=== PATIENT | male | born 1970 | race African-American/Black ===

== ENCOUNTER 2016-12-19 08:36 | Inpatient (IN) | payer OTHER ==
[2016-12-19 10:49] VITALS: BMI 33.0
--- NOTE | 2016-12-19 14:48 | HP ---
Admission ROS [facility] Chief Complaint: I need to go to rehab to further my tx. I go to [facility] and need a higher level of care. Allergies/Adverse Reactions: Allergies Allergy/AdvReac Type Severity Reaction Status Date / Time bee venom protein (honey bee) Allergy Severe Difficulty Verified 12/19/16 12:18 Breathing penicillin G Allergy Severe Swelling Verified 12/19/16 12:18 butter Allergy Severe Hives Uncoded 12/19/16 12:16 History of Present Illness: Pt is a 46yr old male with a history of alcohol and cocaine dependence seeking rehab for treatment. Exam Limitations: No Limitations - Ebola screening Have you traveled outside of the country in the last 21 days: No Have you had contact with anyone from an Ebola affected area: No Have you been sick,other than usual withdrawal symptoms: No Do you have a fever: No - Review of Systems Constitutional: No Symptoms Reported EENT: reports: No Symptoms Reported Respiratory: reports: Cough, Productive cough Cardiac: reports: No Symptoms Reported GI: reports: No Symptoms Reported : reports: No Symptoms Reported Musculoskeletal: reports: No Symptoms Reported Integumentary: reports: No Symptoms Reported Neuro: reports: No Symptoms reported Endocrine: reports: No Symptoms Reported Hematology: reports: No Symptoms Reported Psychiatric: reports: Judgement Intact, Mood/Affect Appropiate, Orientated x3, Agitated, Anxious Other Systems: Reviewed and Negative Patient History - Patient Medical History Hx Anemia: No Hx Asthma: Yes Hx Chronic Obstructive Pulmonary Disease (COPD): No Hx Cancer: No Hx Cardiac Disorders: No Hx Congestive Heart Failure: No Hx Hypertension: Yes (norvasc 5mg) Hx Hypercholesterolemia: No Hx Pacemaker: No HX Cerebrovascular Accident: No Hx Seizures: No Hx Dementia: No Hx Diabetes: No Hx Gastrointestinal Disorders: No Hx Liver Disease: No Hx Genitourinary Disorders: No Hx Sexually Transmitted Disorders: No Hx Renal Disease (ESRD): No Hx Thyroid Disease: No Hx Human Immunodeficiency Virus (HIV): No (negative) Hx Hepatitis C: (negative) Hx Depression: Yes Hx Suicide Attempt: Yes (pill overdose at age 16; no desire to hurt self. ) Hx Bipolar Disorder: No Hx Schizophrenia: No - Patient Surgical History Past Surgical History: No Hx Neurologic Surgery: No Hx Cataract Extraction: No Hx Cardiac Surgery: No Hx Lung Surgery: No Hx Breast Surgery: No Hx Breast Biopsy: No Hx Abdominal Surgery: No Hx Appendectomy: No Hx Cholecystectomy: No Hx Genitourinary Surgery: No Hx Section: No Hx Orthopedic Surgery: No Anesthesia Reaction: No - PPD History Previous Implant?: Yes Documented Results: Negative w/proof Implanted On Prior [facility] Admission?: No Date: 02/09/16 Results: 0 mm PPD to be Administered?: No - Reproductive History Patient is a Female of Child Bearing Age (11 -55 yrs old): No - Smoking Cessation Smoking history: Current every day smoker Have you smoked in the past 12 months: Yes Aproximately how many cigarettes per day: 20 Hx Chewing Tobacco Use: No Initiated information on smoking cessation: Yes 'Breaking Loose' booklet given: 12/19/16 - Substance & Tx. History Hx Alcohol Use: Yes Hx Substance Use: Yes Substance Use Type: Alcohol, Cocaine Hx Substance Use Treatment: No (last detox many years ago.) - Substances Abused Cocaine Route: Inhalation Frequency: 1-2 times per week Amount used: $100 Age of first use: 10 Date of Last Use: 12/18/16 Alcohol-vodka Route: Oral Frequency: 1-2 times per week Amount used: 1 pt. Age of first use: 10 Date of Last Use: 12/18/16 Family Disease History - Family Disease History Family Disease History: Diabetes: Mother, Brother Admission Physical Exam BHS - Vital Signs Vital Signs: Vital Signs - 24 hr 12/19/16 10:47 Temperature 98.4 F Pulse Rate 71 Respiratory 20 Rate Blood Pressure 133/80 - Physical General Appearance: Yes: Appropriately Dressed, Moderate Distress, Tremorous, Irritable, Sweating, Anxious HEENTM: Yes: Hearing grossly Normal, Normal Voice Respiratory: Yes: Lungs Clear, Normal Breath Sounds, No Respiratory Distress Neck: Yes: No masses,lesions,Nodules Breast: Yes: Within Normal Limits Cardiology: Yes: Regular Rhythm, Regular Rate, S1, S2 Abdominal: Yes: Normal Bowel Sounds, Non Tender, Soft Genitourinary: Yes: Within Normal Limits Back: Yes: Normal Inspection Musculoskeletal: Yes: full range of Motion Extremities: Yes: Normal Capillary Refill, Normal Inspection, Tremors Neurological: Yes: Fully Oriented, Alert, Normal Response Integumentary: Yes: Normal Color Lymphatic: Yes: Within Normal Limits - Diagnostic (1) Alcohol abuse Current Visit: No Status: Chronic (2) Cocaine dependence Current Visit: No Status: Chronic Qualifiers: Substance use status: uncomplicated Qualified Code(s): F14.20 - Cocaine dependence, uncomplicated (3) Nicotine dependence Current Visit: Yes Status: Chronic Qualifiers: Nicotine product type: cigarettes Substance use status: uncomplicated Qualified Code(s): F17.210 - Nicotine dependence, cigarettes, uncomplicated (4) Asthma Current Visit: Yes Status: Chronic Qualifiers: Asthma severity: mild intermittent Asthma complication type: uncomplicated Qualified Code(s): J45.20 - Mild intermittent asthma, uncomplicated (5) Hypertension Current Visit: Yes Status: Chronic Qualifiers: Hypertension type: essential hypertension Qualified Code(s): I10 - Essential (primary) hypertension Cleared for Admission S - Detox or Rehab [facility] Level of Care: Medically Managed Claeared for Rehab Admission: Yes S Breath Alcohol Content Breath Alcohol Content: 0 Urine Drug Screen - Results Drug Screen Negative: No Urine Drug Screen Results: TONE-Cocaine
[2016-12-19] MEDS ORDERED: LOPERAMIDE HCL 2 MG CAPSULE PO PRN (14:54)
[2016-12-19] MEDS ORDERED: MAGNESIUM CITRATE 300 ML BOTTLE PO PRN (14:54)
[2016-12-19] MEDS ORDERED: hydrOXYzine PAMOATE 50 MG CAPSULE (FP) PO PRN (14:54)
[2016-12-19] MEDS ORDERED: MAGNESIUM HYDROX 2400MG/30ML ORAL SUSPENSION 30 ML CUP PO PRN (14:54)
[2016-12-19] MEDS ORDERED: ACETAMINOPHEN 325 MG TABLET (FP) PO PRN (14:54)
[2016-12-19] MEDS ORDERED: diphenhydrAMINE HCL 50 MG CAPSULE PO PRN (14:54)
[2016-12-19] MEDS ORDERED: P-EPHED 60MG/TRIPROLIDI 2.5MG TABLET PO PRN (14:54)
[2016-12-19] MEDS ORDERED: MAG HYDROX/AL HYDROX/SIMETH 30 ML UNIT-DOSE CUP PO PRN (14:54)
[2016-12-19] MEDS ORDERED: ALBUTEROL SO4 6.7 GM HFA INHALER IH PRN (14:56)
[2016-12-19 16:18] LABS: MCH 27.6 pg (25.7-33.7); MCHC 32.3 g/dl (32.0-35.9); MEAN CELL VOLUME 85.3 fl (80-96); RDW 13.6 % (11.9-15.9); WHITE BLOOD COUNT 9.6 K/mm3 (4.0-10.0)
[2016-12-19 16:19] LABS: ALBUMIN 4.2 g/dl (3.4-5.0); ANION GAP 7 (8-16); CALCIUM 9.1 mg/dL (8.5-10.1); CO2 29 mmol/L (21-32); GLUCOSE,RANDOM 99 mg/dL (74-106)
[2016-12-19 16:25] LABS: ALK PHOS 72 U/L (45-117); BILIRUBIN,TOTAL 0.8 mg/dL (0.2-1.0); CREATININE 1.1 mg/dL (0.7-1.3); SGOT/AST 16 U/L (15-37); SGPT/ALT 29 U/L (12-78); TOT PROT 6.9 g/dl (6.4-8.2)
[2016-12-19 17:19] LABS: PLATELET COMMENT2 SLT PLT CLUMPING; PLATELET COMMENT3 UNABLE TO ENUMERATE; PLATELET ESTIMATE ADEQUATE (NORMAL)
[2016-12-19 19:39] LABS: URINE APPEARANCE CLEAR; URINE BILIRUBIN NEGATIVE (NEGATIVE); URINE BLOOD NEGATIVE (NEGATIVE); URINE COLOR LTYELLOW; URINE GLUCOSE (UA) NEGATIVE (NEGATIVE); URINE KETONE NEGATIVE (NEGATIVE); URINE LEUK ESTERASE NEGATIVE (NEGATIVE); URINE NITRITE NEGATIVE (NEGATIVE); URINE PROTEIN NEGATIVE (NEGATIVE); URINE UROBILINOGEN NEGATIVE mg/dL (0.2-1.0)
[2016-12-19] MEDS: THIAMINE HCL 100 MG TABLET (FP) PO SCH (21:15)
[2016-12-19] MEDS: QUEtiapine FUMARATE 50 MG TABLET PO SCH (22:21)
[2016-12-20] MEDS: PRENATAL VITAMINS W/ FOLIC ACID TABLET (FP) PO SCH (09:54)
--- NOTE | 2016-12-20 10:12 | HP ---
Psychiatrist Admission - Data Date of interview: 12/20/16 Admission source: [facility] Identifying data: This is the first 5N inpatient rejhabilitation admission for this 46 year old single Black male father of 5, unemployed and on DSS, residing in [place]. Medical History: Asthma, HTN, smokes cigarettes 1 PPD. Psychiatric History: Patient reports was diagnosed as B[facility]olr [facility]. Reports no history of psychiatric hospitalizations and no history of suicdal/homicidal thoughts. Vital Signs: Vital Signs - 24 hr 12/19/16 12/19/16 12/20/16 10:47 18:35 00:30 Temperature 98.4 F 97.8 F Pulse Rate 71 67 Respiratory 20 18 18 Rate Blood Pressure 133/80 146/89 12/20/16 12/20/16 03:30 06:25 Temperature 97.9 F Pulse Rate 62 Respiratory 18 18 Rate Blood Pressure 148/85 Allergies/Adverse Reactions: Allergies Allergy/AdvReac Type Severity Reaction Status Date / Time bee venom protein (honey bee) Allergy Severe Difficulty Verified 12/19/16 12:18 Breathing penicillin G Allergy Severe Swelling Verified 12/19/16 12:18 butter Allergy Severe Hives Uncoded 12/19/16 12:16 Date of last physical exam: 12/19/16 Concur with the findings of this exam: Yes - Substance Abuse/Tx History Hx Alcohol Use: Yes Hx Substance Use: Yes Substance Use Type: Alcohol (1-2 times a week), Cocaine ($100 1-2 times a week) Hx Substance Use Treatment: Yes ([facility]) - Admission Criteria Previous failed treatment: Yes Poor recovery environment: Yes Comorbidities: Yes Lacks judgement: Yes Mental Status Exam - Mental Status Exam Alert and Oriented to: Time, Place, Person Cognitive Function: Good Patient Appearance: Well Groomed Mood: Hopeful Affect: Appropriate, Mood Congruent Patient Behavior: Appropriate, Cooperative Speech Pattern: Clear, Appropriate Voice Loudness: Normal Thought Process: Intact, Goal Oriented Thought Disorder: Not Present Hallucinations: Denies Suicidal Ideation: Denies Homicidal Ideation: Denies Insight/Judgement: Fair Sleep: Fair Appetite: Good Muscle strength/Tone: Normal Gait/Station: Normal Psychiatric Findings - Problem List ([place] 1, 2,3) (1) Asthma Current Visit: Yes Status: Chronic Qualifiers: Asthma severity: mild intermittent Asthma complication type: uncomplicated Qualified Code(s): J45.20 - Mild intermittent asthma, uncomplicated (2) Hypertension Current Visit: Yes Status: Chronic Qualifiers: Hypertension type: essential hypertension Qualified Code(s): I10 - Essential (primary) hypertension (3) Nicotine dependence Current Visit: Yes Status: Chronic Qualifiers: Nicotine product type: cigarettes Substance use status: uncomplicated Qualified Code(s): F17.210 - Nicotine dependence, cigarettes, uncomplicated (4) Alcohol abuse Current Visit: No Status: Chronic (5) Cocaine dependence Current Visit: No Status: Chronic Qualifiers: Substance use status: uncomplicated Qualified Code(s): F14.20 - Cocaine dependence, uncomplicated (6) Mood disorder Current Visit: Yes Status: Acute
--- NOTE | 2016-12-20 11:59 | EKG ---
Test Reason : Blood Pressure : / mmHG Vent. Rate : 064 BPM Atrial Rate : 064 BPM P-R Int : 140 ms QRS Dur : 098 ms QT Int : 374 ms P-R-T Axes : 054 073 -33 degrees QTc Int : 385 ms NORMAL SINUS RHYTHM ABNORMAL ECG NO PREVIOUS ECGS AVAILABLE Confirmed by DEMI STEVENS MD ([id number]) on 12/20/2016 11:58:46 AM Referred By: Confirmed By:DEMI STEVENS MD
[2016-12-20] MEDS: guaiFENesin/D-METHORPHAN HB 10 ML UNIT-DOSE CUPS PO PRN (16:58)
[2016-12-20] MEDS: THIAMINE HCL 100 MG TABLET (FP) PO SCH (21:17)
[2016-12-20] MEDS: QUEtiapine FUMARATE 50 MG TABLET PO SCH (21:17)
[2016-12-20] MEDS: MENTHOL/PHENOL 1 EACH UD MM PRN (21:18)
[2016-12-21] MEDS: amLODIPine BESYLATE 5 MG TABLET (FP) PO SCH (09:56)
[2016-12-21] MEDS: PRENATAL VITAMINS W/ FOLIC ACID TABLET (FP) PO SCH (09:56)
[2016-12-21] MEDS: QUEtiapine FUMARATE 50 MG TABLET PO SCH (21:45)
[2016-12-21] MEDS: guaiFENesin/D-METHORPHAN HB 10 ML UNIT-DOSE CUPS PO PRN (21:45)
[2016-12-21] MEDS: THIAMINE HCL 100 MG TABLET (FP) PO SCH (21:45)
[2016-12-22] MEDS: MENTHOL/PHENOL 1 EACH UD MM PRN ×3 (06:23→21:28)
[2016-12-22] MEDS: amLODIPine BESYLATE 5 MG TABLET (FP) PO SCH (09:52)
[2016-12-22] MEDS: PRENATAL VITAMINS W/ FOLIC ACID TABLET (FP) PO SCH (09:52)
[2016-12-22] MEDS: guaiFENesin/D-METHORPHAN HB 10 ML UNIT-DOSE CUPS PO PRN ×2 (09:54→21:27)
[2016-12-22] MEDS: IBUPROFEN 400 MG TABLET (FP) PO PRN (09:54)
[2016-12-22] MEDS: THIAMINE HCL 100 MG TABLET (FP) PO SCH (21:26)
[2016-12-22] MEDS: QUEtiapine FUMARATE 50 MG TABLET PO SCH (21:26)
[2016-12-23] MEDS: amLODIPine BESYLATE 5 MG TABLET (FP) PO SCH (09:59)
[2016-12-23] MEDS: PRENATAL VITAMINS W/ FOLIC ACID TABLET (FP) PO SCH (09:59)
[2016-12-23] MEDS: guaiFENesin/D-METHORPHAN HB 10 ML UNIT-DOSE CUPS PO PRN ×2 (10:00→21:25)
[2016-12-23] MEDS: QUEtiapine FUMARATE 50 MG TABLET PO SCH (21:23)
[2016-12-23] MEDS: IBUPROFEN 400 MG TABLET (FP) PO PRN (21:23)
[2016-12-23] MEDS: THIAMINE HCL 100 MG TABLET (FP) PO SCH (21:23)
[2016-12-23] MEDS: MENTHOL/PHENOL 1 EACH UD MM PRN (23:33)
[2016-12-24] MEDS: amLODIPine BESYLATE 5 MG TABLET (FP) PO SCH (09:59)
[2016-12-24] MEDS: PRENATAL VITAMINS W/ FOLIC ACID TABLET (FP) PO SCH (09:59)
--- NOTE | 2016-12-24 11:00 | PN ---
[facility] Progress Note Note: coughing,yellowish mucous,lung no wheezing acute bronchitis started on levaquin 500 mgs po daily for 7 days fluid,closed monitoring Vital Signs Temperature 98.1 F 12/24/16 06:56 Pulse Rate 73 12/24/16 06:56 Respiratory Rate 18 12/24/16 06:56 Blood Pressure 146/82 12/24/16 06:56 O2 Sat by Pulse Oximetry (%)
[2016-12-24] MEDS: LEVOFLOXACIN 500 MG TABLET (FP) PO SCH (11:10)
[2016-12-24] MEDS: QUEtiapine FUMARATE 50 MG TABLET PO SCH (21:24)
[2016-12-24] MEDS: THIAMINE HCL 100 MG TABLET (FP) PO SCH (21:24)
[2016-12-25] MEDS: LEVOFLOXACIN 500 MG TABLET (FP) PO SCH (08:40)
--- NOTE | 2016-12-25 08:59 | PN ---
[facility] Progress Note Note: called to evaluate patient with severe abdominal pain,no vomiting,no diarrhea sudden on set of pain heent nomal nock no jvd lung no wheezing abdomen soft distended pain in lower abdomen no regidity tenderness on palpation impression severe abdominal pain r/o renal colic r/o diverticulitis treatment er evaluation at [facility],spoke with Dr Juarez,to be transported by [facility] bp 138/82,p77,r18,t98.4
[2016-12-25] MEDS: PRENATAL VITAMINS W/ FOLIC ACID TABLET (FP) PO SCH (10:53)
[2016-12-25] MEDS: amLODIPine BESYLATE 5 MG TABLET (FP) PO SCH (10:53)
[2016-12-25] MEDS: THIAMINE HCL 100 MG TABLET (FP) PO SCH (21:30)
[2016-12-25] MEDS: QUEtiapine FUMARATE 50 MG TABLET PO SCH (21:30)
[2016-12-25] MEDS: metroNIDAZOLE 250 MG TABLET PO SCH (21:30)
[2016-12-26] MEDS: metroNIDAZOLE 250 MG TABLET PO SCH ×3 (08:49→21:30)
[2016-12-26] MEDS: LEVOFLOXACIN 500 MG TABLET (FP) PO SCH ×2 (08:49→09:58)
[2016-12-26] MEDS: amLODIPine BESYLATE 5 MG TABLET (FP) PO SCH (09:58)
[2016-12-26] MEDS: PRENATAL VITAMINS W/ FOLIC ACID TABLET (FP) PO SCH (09:58)
[2016-12-26] MEDS: THIAMINE HCL 100 MG TABLET (FP) PO SCH (21:30)
[2016-12-26] MEDS: QUEtiapine FUMARATE 50 MG TABLET PO SCH (21:30)
[2016-12-27] MEDS: metroNIDAZOLE 250 MG TABLET PO SCH ×3 (09:00→21:27)
[2016-12-27] MEDS: LEVOFLOXACIN 500 MG TABLET (FP) PO SCH (10:08)
[2016-12-27] MEDS: PRENATAL VITAMINS W/ FOLIC ACID TABLET (FP) PO SCH (10:08)
[2016-12-27] MEDS: amLODIPine BESYLATE 5 MG TABLET (FP) PO SCH (10:08)
[2016-12-27] MEDS: QUEtiapine FUMARATE 50 MG TABLET PO SCH (21:28)
[2016-12-27] MEDS: THIAMINE HCL 100 MG TABLET (FP) PO SCH (21:28)
[2016-12-28] MEDS: metroNIDAZOLE 250 MG TABLET PO SCH ×3 (08:14→21:24)
[2016-12-28] MEDS: amLODIPine BESYLATE 5 MG TABLET (FP) PO SCH (09:43)
[2016-12-28] MEDS: PRENATAL VITAMINS W/ FOLIC ACID TABLET (FP) PO SCH (09:43)
[2016-12-28] MEDS: LEVOFLOXACIN 500 MG TABLET (FP) PO SCH (09:43)
[2016-12-28] MEDS: QUEtiapine FUMARATE 50 MG TABLET PO SCH (21:24)
[2016-12-28] MEDS: THIAMINE HCL 100 MG TABLET (FP) PO SCH (21:24)
[2016-12-29] MEDS: LEVOFLOXACIN 500 MG TABLET (FP) PO SCH (09:05)
[2016-12-29] MEDS: PRENATAL VITAMINS W/ FOLIC ACID TABLET (FP) PO SCH (09:05)
[2016-12-29] MEDS: metroNIDAZOLE 250 MG TABLET PO SCH ×3 (09:05→21:27)
[2016-12-29] MEDS: amLODIPine BESYLATE 5 MG TABLET (FP) PO SCH (09:05)
[2016-12-29] MEDS: IBUPROFEN 400 MG TABLET (FP) PO PRN (14:15)
[2016-12-29] MEDS: QUEtiapine FUMARATE 50 MG TABLET PO SCH (21:27)
[2016-12-29] MEDS: THIAMINE HCL 100 MG TABLET (FP) PO SCH (21:27)
[2016-12-30] MEDS: metroNIDAZOLE 250 MG TABLET PO SCH ×3 (08:48→21:21)
[2016-12-30] MEDS: PRENATAL VITAMINS W/ FOLIC ACID TABLET (FP) PO SCH (10:21)
[2016-12-30] MEDS: LEVOFLOXACIN 500 MG TABLET (FP) PO SCH (10:21)
[2016-12-30] MEDS: amLODIPine BESYLATE 5 MG TABLET (FP) PO SCH (10:21)
[2016-12-30] MEDS: QUEtiapine FUMARATE 50 MG TABLET PO SCH (21:21)
[2016-12-30] MEDS: THIAMINE HCL 100 MG TABLET (FP) PO SCH (21:21)
[2016-12-31] MEDS: metroNIDAZOLE 250 MG TABLET PO SCH ×3 (08:17→21:21)
[2016-12-31] MEDS: PRENATAL VITAMINS W/ FOLIC ACID TABLET (FP) PO SCH (10:10)
[2016-12-31] MEDS: LEVOFLOXACIN 500 MG TABLET (FP) PO SCH (10:10)
[2016-12-31] MEDS: amLODIPine BESYLATE 5 MG TABLET (FP) PO SCH (10:10)
[2016-12-31] MEDS: THIAMINE HCL 100 MG TABLET (FP) PO SCH (21:21)
[2016-12-31] MEDS: QUEtiapine FUMARATE 50 MG TABLET PO SCH (21:21)
[2016-12-31] MEDS: NICOTINE POLACRILEX 4 MG GUM BUC PRN (21:21)
[2017-01-01] MEDS: metroNIDAZOLE 250 MG TABLET PO SCH ×3 (08:29→21:23)
[2017-01-01] MEDS: PRENATAL VITAMINS W/ FOLIC ACID TABLET (FP) PO SCH (10:11)
[2017-01-01] MEDS: NICOTINE POLACRILEX 4 MG GUM BUC PRN ×2 (10:11→21:24)
[2017-01-01] MEDS: LEVOFLOXACIN 500 MG TABLET (FP) PO SCH (10:11)
[2017-01-01] MEDS: amLODIPine BESYLATE 5 MG TABLET (FP) PO SCH (10:11)
[2017-01-01 16:59] VITALS: PULSE 69
[2017-01-01] MEDS: QUEtiapine FUMARATE 50 MG TABLET PO SCH (21:23)
[2017-01-01] MEDS: THIAMINE HCL 100 MG TABLET (FP) PO SCH (21:23)
[2017-01-02 07:02] VITALS: BP 127/83; TEMP 98.8
[2017-01-02] MEDS: LEVOFLOXACIN 500 MG TABLET (FP) PO SCH (10:37)
[2017-01-02] MEDS: PRENATAL VITAMINS W/ FOLIC ACID TABLET (FP) PO SCH (10:37)
[2017-01-02] MEDS: amLODIPine BESYLATE 5 MG TABLET (FP) PO SCH (10:37)
--- NOTE | 2017-01-02 11:27 | PN ---
Psychiatric Progress Note Vital Signs: Vital Signs Period Temp Pulse Resp BP Sys/Barkley Pulse Ox Last 24 Hr 98.8 F 69 18-18 127/83 Date of Session: 01/02/17 Chief Complaint:: discharge visit HPI: Patient has addressed alcohol, cocaine, nicotine dependence comorbid Mood disorder. ROS: Asthma, HTN medically managed. Current Medications: Active Medications Generic Name Dose Route Start Last Admin Trade Name Freq PRN Reason Stop Dose Admin Acetaminophen 650 mg 12/19/16 14:54 Tylenol - PO Q4H PRN PAIN Al Hydroxide/Mg Hydroxide 30 ml 12/19/16 14:54 12/30/16 10:23 Mylanta Oral Suspension - PO 30 ml Q6H PRN Administration DYSPEPSIA Albuterol Sulfate 2 puff 12/19/16 14:56 Ventolin Hfa Inhaler - IH Q4H PRN ASTHMA Amlodipine Besylate 5 mg 12/21/16 10:00 01/02/17 10:37 Norvasc - PO 5 mg DAILY SHAHANA Administration Diphenhydramine HCl 50 mg 12/19/16 14:54 12/27/16 21:27 Benadryl - PO 50 mg HSMR1 PRN Administration INSOMNIA Eucalyptus/Menthol/Phenol/Sorbitol 1 each 12/19/16 14:54 12/23/16 23:33 Cepastat Lozenge - MM 1 each Q4H PRN Administration SORE THROAT Guaifenesin 10 ml 12/19/16 14:54 12/23/16 21:25 Robitussin Dm - PO 10 ml Q6H PRN Administration COUGH Hydroxyzine Pamoate 50 mg 12/19/16 14:54 Vistaril - PO Q4H PRN AGITATION Ibuprofen 400 mg 12/19/16 14:54 12/29/16 14:15 Motrin - PO 400 mg Q6H PRN Administration SEVERE PAIN Loperamide HCl 4 mg 12/19/16 14:54 Imodium - PO Q6H PRN DIARRHEA Magnesium Citrate 300 ml 12/19/16 14:54 Citroma - PO Q48H PRN CONSTIPATION Magnesium Hydroxide 30 ml 12/19/16 14:54 Milk Of Magnesia - PO DAILY PRN CONSTIPATION Nicotine Polacrilex 4 mg 12/19/16 14:54 01/01/17 21:24 Nicorette Gum - BUC 4 mg Q2H PRN Administration NICOTINE REPLACEMENT RX Multivit/Folic Acid/Iron 1 tab 12/20/16 10:00 01/02/17 10:37 Vitamins (Sj[facility]) - PO 1 tab DAILY SHAHANA Administration Pseudoephedrine/Triprolidine 1 combo 12/19/16 14:54 Actifed - PO TID PRN NASAL CONGESTION Quetiapine Fumarate 50 mg 12/19/16 22:30 01/01/17 21:23 Seroquel - PO 50 mg HS SHAHANA Administration Thiamine HCl 100 mg 12/19/16 22:00 01/01/17 21:23 Vitamin B1 - PO 100 mg HS SHAHANA Administration Current Side Effect: No Lab tests ordered: No Lab tests reviewed: Yes Provider note:: Patient has compleited today his treatment and met his goals, will continue to address his issues at [facility] outpatient treatment program.Patient gained insights into his addiction and verbalized motivations to stay sober and adherent to every aspect of his aftercare plans. Seroquel well tolerated, scripts provided for 30 days, stable for discharge today. Total face to face time:: 15 Mental Status Exam - Mental Status Exam Alert and Oriented to: Time, Place, Person Cognitive Function: Good Patient Appearance: Well Groomed Mood: Hopeful Patient Behavior: Appropriate, Cooperative Speech Pattern: Clear, Appropriate Voice Loudness: Normal Thought Process: Intact, Goal Oriented Thought Disorder: Not Present Hallucinations: Denies Suicidal Ideation: Denies Homicidal Ideation: Denies Insight/Judgement: Fair Sleep: Fair Appetite: Fair Muscle strength/Tone: Normal Gait/Station: Normal Psychiatric Treatment Plan - Problem List (1) Asthma Current Visit: Yes Qualifiers: Asthma severity: mild intermittent Asthma complication type: uncomplicated Qualified Code(s): J45.20 - Mild intermittent asthma, uncomplicated (2) Hypertension Current Visit: Yes Qualifiers: Hypertension type: essential hypertension Qualified Code(s): I10 - Essential (primary) hypertension (3) Nicotine dependence Current Visit: Yes Qualifiers: Nicotine product type: cigarettes Substance use status: uncomplicated Qualified Code(s): F17.210 - Nicotine dependence, cigarettes, uncomplicated (4) Alcohol abuse Current Visit: No (5) Cocaine dependence Current Visit: No Qualifiers: Substance use status: uncomplicated Qualified Code(s): F14.20 - Cocaine dependence, uncomplicated (6) Mood disorder Current Visit: Yes
== END 2017-01-02 12:17 | disposition home or self-care (01) | DRG 772 ==
LOC: YASAS 08:36 → Y5N 13:06
PROVIDERS: ADMIT Psychiatry & Neurology Psychiatry; ATTEND Psychiatry & Neurology Psychiatry
PROC: HZ42ZZZ Group Counseling for Substance Abuse Treatment, Cognitive-Behavioral (ICD-10-PCS; principal; 2016-12-19)
DX: F14.20 Cocaine dependence, uncomplicated (principal); F10.10 Alcohol abuse, uncomplicated; F17.210 Nicotine dependence, cigarettes, uncomplicated; F39 Unspecified mood [affective] disorder; I10 Essential (primary) hypertension; J45.20 Mild intermittent asthma, uncomplicated; J20.9 Acute bronchitis, unspecified; R10.9 Unspecified abdominal pain; Z91.038 Other insect allergy status; Z88.0 Allergy status to penicillin; Z91.011 Allergy to milk products; Z91.5 Personal history of self-harm
CPT/HCPCS: 36415; 80053; 81003; 85027; 86593; 93005; 93010

== ENCOUNTER 2016-12-25 09:43 | Emergency (ER) | payer OTHER ==
[2016-12-25 10:12] VITALS: TEMP 98.4; BMI 33.0
[2016-12-25] MEDS ORDERED: SODIUM CHLORIDE 1,000 ML IV STA (10:37)
[2016-12-25] MEDS ORDERED: METOCLOPRAMIDE HCL INJECTION 10 MG/2 ML VIAL IVPB ONE (10:39)
[2016-12-25] MEDS ORDERED: morphine CARPU-JECT 4 MG/1 ML DISP.SYRIN IVPUSH ONE ×2 (10:39→13:48)
[2016-12-25] MEDS ORDERED: morphine CARPU-JECT 4 MG/1 ML DISP.SYRIN ONE ×2 (10:47→13:58)
[2016-12-25] MEDS ORDERED: METOCLOPRAMIDE HCL INJECTION 10 MG/2 ML VIAL ONE (10:47)
[2016-12-25 10:50] LABS: BASOPHIL 0.6 % (0-2.0); EOSINOPHIL 0.5 % (0-4.5); MCH 27.6 pg (25.7-33.7); MCHC 32.9 g/dl (32.0-35.9); MEAN CELL VOLUME 83.8 fl (80-96); MEAN PLT VOLUME 8.5 fl (7.5-11.1); PLATELET COUNT 216 K/MM3 (134-434); RDW 13.3 % (11.9-15.9); WHITE BLOOD COUNT 13.2 K/mm3 (4.0-10.0)
--- NOTE | 2016-12-25 11:09 | PDOC ---
History of Present Illness - General History Source: Patient Exam Limitations: No Limitations - History of Present Illness Initial Comments: 12/25/16 11:10 The patient is a 46 year old male with history of polysubstance abuse (cocaine and alcohol), hypertension and asthma who arrives to the ED from [facility] with complaints of lower abdominal pain that began this morning. The patient states the pain began shortly after the patient woke up. He states the pain is sharp, intermittent every few seconds, 9/10 in severity and is worsened by lying flat. The patient notes an episode of vomiting this morning as well and denies diarrhea. Last BM was yesterday. The patient was admitted to [facility] 5 days ago and his last drug/alcohol drink was 7 days ago. The patient denies any surgeries. He denies any fever, chills, cough, shortness of breath, chest pain, or urinary complaints. <Ashley Ch - Last Filed: 12/25/16 14:58> - General History Source: Patient Exam Limitations: No Limitations <Hamzah Hernandez - Last Filed: 12/25/16 15:44> - General Chief Complaint: Pain Stated Complaint: PAIN, ACUTE Time Seen by Provider: 12/25/16 10:00 Past History <Ashley Ch - Last Filed: 12/25/16 14:58> - Past Medical History Anemia: No Asthma: Yes Cancer: No Cardiac Disorders: No CVA: No COPD: No CHF: No Dementia: No Diabetes: No GI Disorders: No Disorders: No HTN: Yes (norvasc 5mg) Hypercholesterolemia: No Kidney Stones: No Liver Disease: No Suicide Attempt (Hx): Yes (pill overdose at age 16; no desire to hurt self. ) Seizures: No Thyroid Disease: No - Surgical History Abdominal Surgery: No Appendectomy: No Cardiac Surgery: No Cholecystectomy: No Lung Surgery: No Neurologic Surgery: No Orthopedic Surgery: No - Reproductive History Testicular Surgery: No - Psycho/Social/Smoking Cessation Hx Anxiety: Yes Suicidal Ideation: No Smoking History: Current every day smoker Have you smoked in the past 12 months: Yes Number of Cigarettes Smoked Daily: 20 Information on smoking cessation initiated: No 'Breaking Loose' booklet given: 12/19/16 Hx Alcohol Use: Yes Drug/Substance Use Hx: Yes Substance Use Type: Alcohol, Cocaine Hx Substance Use Treatment: Yes ([facility]) <Hamzah Hernandez - Last Filed: 12/25/16 15:44> - Past Medical History Allergies/Adverse Reactions: Allergies Allergy/AdvReac Type Severity Reaction Status Date / Time bee venom protein (honey bee) Allergy Severe Difficulty Verified 12/25/16 10:09 Breathing penicillin G Allergy Severe Swelling Verified 12/25/16 10:09 butter Allergy Severe Hives Uncoded 12/25/16 10:09 Home Medications: Ambulatory Orders Albuterol Sulfate Inhaler - [Ventolin Hfa Inhaler -] 2 inh PO Q4H PRN 12/19/16 Quetiapine Fumarate [Seroquel -] 50 mg PO HS 12/19/16 Amlodipine Besylate [Norvasc -] 5 mg PO DAILY 12/20/16 Review of Systems - Review of Systems Able to Perform ROS?: Yes Comments:: 12/25/16 11:11 GENERAL/CONSTITUTIONAL: No fever or chills. No weakness. HEAD, EYES, EARS, NOSE AND THROAT: No change in vision. No ear pain or discharge. No sore throat. CARDIOVASCULAR: No chest pain or shortness of breath. RESPIRATORY: No cough, wheezing, or hemoptysis. GASTROINTESTINAL: Present: nausea, vomiting, lower abdominal pain No diarrhea or constipation. GENITOURINARY: No dysuria, frequency, or change in urination. MUSCULOSKELETAL: No joint or muscle swelling or pain. No neck or back pain. SKIN: No rash NEUROLOGIC: No headache, vertigo, loss of consciousness, or change in strength/ sensation. ENDOCRINE: No increased thirst. No abnormal weight change. HEMATOLOGIC/LYMPHATIC: No anemia, easy bleeding, or history of blood clots. ALLERGIC/IMMUNOLOGIC: No hives or skin allergy. All Other Systems: Reviewed and Negative <Ashley Ch - Last Filed: 12/25/16 14:58> *Physical Exam - Vital Signs Last Vital Signs Temp Pulse Resp BP Pulse Ox 98.4 F 80 18 165/99 97 12/25/16 10:05 12/25/16 10:05 12/25/16 10:05 12/25/16 10:05 12/25/16 10:05 - Physical Exam Comments: 12/25/16 11:12 GENERAL: Awake, alert, and fully oriented, in no acute distress HEAD: No signs of trauma EYES: PERRLA, EOMI, sclera anicteric, conjunctiva clear ENT: Auricles normal inspection, hearing grossly normal, nares patent, oropharynx clear without exudates. Moist mucosa NECK: Normal ROM, supple, no lymphadenopathy, JVD, or masses LUNGS: Breath sounds equal, clear to auscultation bilaterally. No wheezes, and no crackles HEART: Regular rate and rhythm, normal S1 and S2, no murmurs, rubs or gallops ABDOMEN: Soft, diffuse lower abdominal tenderness to palpation, normoactive bowel sounds. No guarding, no rebound. No masses EXTREMITIES: Normal range of motion, no edema. No clubbing or cyanosis. No cords, erythema, or tenderness NEUROLOGICAL: Cranial nerves II through XII grossly intact. Normal speech, normal gait SKIN: Warm, Dry, normal turgor, no rashes or lesions noted. <Ashley Ch - Last Filed: 12/25/16 14:58> - Vital Signs Last Vital Signs Temp Pulse Resp BP Pulse Ox 98.4 F 80 18 165/99 97 12/25/16 10:05 12/25/16 10:05 12/25/16 10:05 12/25/16 10:05 12/25/16 10:05 <Hamzah Hernandez - Last Filed: 12/25/16 15:44> ED Treatment Course - LABORATORY CBC & Chemistry Diagram: 12/25/16 10:45 12/25/16 10:45 - ADDITIONAL ORDERS Additional order review: 12/25/16 10:45 RBC 5.71 H MCV 83.8 MCHC 32.9 RDW 13.3 MPV 8.5 Neutrophils % 79.0 Lymphocytes % 12.3 Monocytes % 7.6 Eosinophils % 0.5 Basophils % 0.6 - RADIOLOGY Radiograph Interpretation: 12/25/16 14:[address] abdomen/pelvis as reviewed by Dr. Goss reports distended fluid filled loops of large and small bowel most consistent with an ileus. R/o enterocolitis - Medications Given in the ED: ED Medications Discontinued Medications Generic Name Dose Route Start Last Admin Trade Name Freq PRN Reason Stop Dose Admin Metoclopramide HCl 10 mg 12/25/16 10:39 12/25/16 10:47 Reglan Injection - IVPB 12/25/16 10:40 10 mg ONCE ONE Administration Morphine Sulfate 4 mg 12/25/16 10:39 12/25/16 10:47 Morphine Injection - IVPUSH 12/25/16 10:40 4 mg ONCE ONE Administration <Ashley Ch - Last Filed: 12/25/16 14:58> - LABORATORY CBC & Chemistry Diagram: 12/25/16 10:45 12/25/16 10:45 - RADIOLOGY Radiology Studies Ordered: Category Date Time Status ABDOMEN & PELVIS CT WITH CONTR [CT] Stat CT Scan 12/25/16 10:37 Ordered <MaryHamzah - Last Filed: 12/25/16 15:44> Medical Decision Making - Medical Decision Making . <Ashley Ch - Last Filed: 12/25/16 14:58> - Medical Decision Making 12/25/16 10:46 A portion of this note was documented by scribe services under my direction. I have reviewed the details of the note, within reason, and agree with the documentation with the following case summary and management plan written by me. Patient treated in the ED. Nursing notes are reviewed and incorporated into the medical decision-making. Vital signs reviewed. Peripheral IV access obtained by the nurse, laboratory studies are drawn and sent, reviewed and interpreted by myself. Vital Signs Temp Pulse Resp BP Pulse Ox 98.4 F 80 18 165/99 97 12/25/16 10:05 12/25/16 10:05 12/25/16 10:05 12/25/16 10:05 12/25/16 10:05 46-year-old male with history of hypertension, asthma, polysubstance abuse presents with lower abdominal pain since this morning. Patient reports waking up with this persistent sharp constant lower abdominal pain with nausea and episodes of vomiting. Denies dysuria, diarrhea. I'm concerned for appendicitis. We'll obtain labs obtain a CAT scan abdomen pelvis and reassess. 12/25/16 15:31 CBC, BMP 12/25/16 10:45 12/25/16 10:45 CMP Sodium 140 mmol/L (136-145) 12/25/16 10:45 Potassium 4.9 mmol/L (3.5-5.1) 12/25/16 10:45 Chloride 103 mmol/L (98-107) 12/25/16 10:45 Carbon Dioxide 31 mmol/L (21-32) 12/25/16 10:45 Anion Gap 6 (8-16) L 12/25/16 10:45 BUN 12 mg/dL (7-18) 12/25/16 10:45 Creatinine 1.2 mg/dL (0.7-1.3) 12/25/16 10:45 Creat Clearance w eGFR > 60 (>60) 12/25/16 10:45 Random Glucose 115 mg/dL (74-106) H 12/25/16 10:45 Calcium 10.0 mg/dL (8.5-10.1) 12/25/16 10:45 Total Bilirubin 0.8 mg/dL (0.2-1.0) 12/25/16 10:45 AST 40 U/L (15-37) H D 12/25/16 10:45 ALT 94 U/L (12-78) H D 12/25/16 10:45 Alkaline Phosphatase 77 U/L (45-117) 12/25/16 10:45 Total Protein 7.9 g/dl (6.4-8.2) 12/25/16 10:45 Albumin 4.5 g/dl (3.4-5.0) 12/25/16 10:45 Lipase 108 U/L (73-393) 12/25/16 10:45 Urine Test Results Urine Color Yellow 12/25/16 11:05 Urine Appearance Clear 12/25/16 11:05 Urine pH 5.0 (5.0-8.0) 12/25/16 11:05 Urine Protein Negative (NEGATIVE) 12/25/16 11:05 Urine Glucose (UA) Negative (NEGATIVE) 12/25/16 11:05 Urine Ketones Negative (NEGATIVE) 12/25/16 11:05 Urine Blood Negative (NEGATIVE) 12/25/16 11:05 Urine Nitrite Negative (NEGATIVE) 12/25/16 11:05 Urine Bilirubin Negative (NEGATIVE) 12/25/16 11:05 Ur Leukocyte Esterase Negative (NEGATIVE) 12/25/16 11:05 Pt here with significant amount of diarrhea. CAT scan abdomen pelvis is negative for appendicitis. It is potentially enterocolitis. We'll treat with levaquin and Flagyl. Patient reports feeling better. Tolerating by mouth here. Case was discussed with Dr. Branden Dial and he agrees that the patient can be transferred back to rehabilitation at [address] [place] [address]. <Hamzah Hernandez - Last Filed: 12/25/16 15:44> *DC/Admit/Observation/Transfer - Attestations Scribe Attestion: 12/25/16 11:12 Documentation prepared by Ashley Ch, acting as neuropsychology medical consultant for Hamzah Hernandez MD. <Ashley Ch - Last Filed: 12/25/16 14:58> - Transfer to Acute Care Facility Accepting Physician:: Zahira Hernandez Care: Dr. Branden Dial <Hamzah Hernandez - Last Filed: 12/25/16 15:44> Diagnosis at time of Disposition: Enterocolitis - Discharge Dispostion Disposition: I.P. ALCOHOL/SUBS ABUSE REHAB Condition at time of disposition: Stable - Patient Instructions Printed Discharge Instructions: DI for Colitis Additional Instructions: Take 500 mg levaquin daily for a total of 10 days. You have received the first dose today here in the ER at 12/25 Please take 500 mg flagyl every 8 hours for a total of 10 days. You have received the first dose in the ER. 30 cc mylanta q6h PRN abdominal pain 650 mg tylenol every 4 hours as needed for pain.
[2016-12-25 11:12] LABS: ALBUMIN 4.5 g/dl (3.4-5.0); CO2 31 mmol/L (21-32); CREATININE 1.2 mg/dL (0.7-1.3); GLUCOSE,RANDOM 115 mg/dL (74-106); SGOT/AST 40 U/L (15-37); SGPT/ALT 94 U/L (12-78)
[2016-12-25 11:13] LABS: ALK PHOS 77 U/L (45-117); BILIRUBIN,TOTAL 0.8 mg/dL (0.2-1.0); TOT PROT 7.9 g/dl (6.4-8.2)
[2016-12-25 11:31] LABS: URINE APPEARANCE CLEAR; URINE BILIRUBIN NEGATIVE (NEGATIVE); URINE BLOOD NEGATIVE (NEGATIVE); URINE COLOR YELLOW; URINE GLUCOSE (UA) NEGATIVE (NEGATIVE); URINE KETONE NEGATIVE (NEGATIVE); URINE LEUK ESTERASE NEGATIVE (NEGATIVE); URINE NITRITE NEGATIVE (NEGATIVE); URINE PROTEIN NEGATIVE (NEGATIVE); URINE UROBILINOGEN NEGATIVE mg/dL (0.2-1.0)
[2016-12-25 12:07] LABS: ANION GAP 6 (8-16)
[2016-12-25] MEDS ORDERED: LEVOFLOXACIN 500 MG IVPB 100 ML IVPB ONE ×3 (14:13→15:08)
[2016-12-25] MEDS ORDERED: MAG HYDROX/AL HYDROX/SIMETH 30 ML UNIT-DOSE CUP PO ONE (14:13)
[2016-12-25] MEDS ORDERED: FAMOTIDINE 20 MG/50 ML IVPB 50 ML IVPB ONE ×2 (14:13→14:44)
[2016-12-25] MEDS ORDERED: METRONIDAZOLE 500 MG PREMIXED 100 ML IVPB ONE ×3 (14:13→15:07)
[2016-12-25] MEDS ORDERED: ONDANSETRON 4 MG/2 ML VIAL IVPB ONE (14:13)
[2016-12-25] MEDS ORDERED: ONDANSETRON 4 MG/2 ML VIAL ONE (14:43)
[2016-12-25] MEDS ORDERED: MAG HYDROX/AL HYDROX/SIMETH 30 ML UNIT-DOSE CUP ONE (14:43)
[2016-12-25 17:21] VITALS: BP 152/88; PULSE 82
== END 2016-12-25 17:22 | disposition other institution (70) ==
LOC: JER 09:43
PROC: 3E03329 Introduction of Other Anti-infective into Peripheral Vein, Percutaneous Approach (ICD-10-PCS; principal; 2016-12-25)
PROC: 3E03329 Introduction of Other Anti-infective into Peripheral Vein, Percutaneous Approach (ICD-10-PCS; 2016-12-25)
PROC: 3E033GC Introduction of Other Therapeutic Substance into Peripheral Vein, Percutaneous Approach (ICD-10-PCS; 2016-12-25)
PROC: 3E033NZ Introduction of Analgesics, Hypnotics, Sedatives into Peripheral Vein, Percutaneous Approach (ICD-10-PCS; 2016-12-25)
PROC: 3E033NZ Introduction of Analgesics, Hypnotics, Sedatives into Peripheral Vein, Percutaneous Approach (ICD-10-PCS; 2016-12-25)
PROC: 3E033GC Introduction of Other Therapeutic Substance into Peripheral Vein, Percutaneous Approach (ICD-10-PCS; 2016-12-25)
DX: K52.89 Other specified noninfective gastroenteritis and colitis (principal); I10 Essential (primary) hypertension; J45.909 Unspecified asthma, uncomplicated; F10.10 Alcohol abuse, uncomplicated; F14.10 Cocaine abuse, uncomplicated
CPT/HCPCS: 36415; 74177-TC; 80053; 81003; 83690; 85025; 87086; 96365; 96368; 96375; 99283-25